=== PATIENT | female | born 1940 | race Two or more races ===

== ENCOUNTER 2018-07-04 23:06 | Emergency (ER) | payer OTHER ==
[~2018-07-04] VITALS: Ht 152.4 cm; Wt 64.4 kg
[2018-07-04] MEDS ORDERED: ENALAPRIL MALEA20 MG (23:23)
[2018-07-04] MEDS ORDERED: ENALAPRIL-HCTZ1 EAC1 (23:44)
[2018-07-04] MEDS ORDERED: RANITIDINE HCL300 MG (23:45)
[2018-07-04] MEDS ORDERED: SYNTHROID100 MCG (23:45)
[2018-07-04] MEDS ORDERED: VERAPAMIL HCL180 M1 (23:45)
[2018-07-04] MEDS ORDERED: ZOCOR20 MG (23:45)
[2018-07-05] MEDS ORDERED: BACTRIM DS TAB1 EACH PO (04:35)
== END 2018-07-05 05:01 ==
LOC: ER 23:06
DX: N39.0 Urinary tract infection, site not specified (principal); R31.0 Gross hematuria